=== PATIENT | male | born 1975 | race Caucasian/White ===

== ENCOUNTER → 2017-01-16 | Outpatient (CLI) | payer OTHER ==
[2017-01-17 04:38] LABS: Thyroid Peroxidase (TPO) Ab 29 IU/mL (0-34)
[2017-01-17 14:40] LABS: Thyroglobulin Antibody <1.0 IU/mL (0.0-0.9)
== END ==
LOC: LAB 14:27
PROVIDERS: Otolaryngology
DX: E03.9 Hypothyroidism, unspecified (principal)